=== PATIENT | male | born 1990 | race Caucasian/White ===

== ENCOUNTER 2019-11-19 16:50 | Emergency (ER) | payer OTHER ==
[2019-11-19 16:56] VITALS: RESP 18; TEMP 97.9
[2019-11-19] MEDS ORDERED: FLUORESCEIN STRIPS 1 MG STRIP BOTH EYES ONE (17:17)
--- NOTE | 2019-11-19 18:12 | ED ---
Eye Problem HPI - General Chief complaint: Eye Problems Stated complaint: lt eye pain, no injury Time Seen by Provider: 11/19/19 16:59 Source: patient Mode of arrival: ambulatory Limitations: no limitations - History of Present Illness Initial comments: 29-year-old male presenting for shooting left eye pain. Patient states he had I pain that began this morning. He denies contact lens use. Patient denies vision loss or blurred vision he states is somewhat watering. Patient states he does then I added home that has a. Patient denies any involvement of the right eye. Patient denies any upper respiratory symptoms. Patient states is a slight frontal headache. He states that this was not necessary associated with the beginning of the eye pain. Patient denies any tenderness palpation of the scalp. Patient denies any rashes or lesions of the face. Patient denies diplopia denies any nausea. Patient denies scratching his eye or weren't work ing with wood or metals. Remaining review of systems negative upon arrival patient appears well no signs of acute distress he denies any trauma to the eye - Related Data Previous Rx's Medication Instructions Recorded Diclofenac 0.1% Ophth Soln 1 drops LEFT EYE QID 5 Days #3 ml 11/19/19 [Voltaren 0.1% Ophth Soln] Erythromycin Ophth Oint [Romycin 1 applic LEFT EYE QID 3 Days #1 11/19/19 Ophth Oint] tube Allergies Allergy/AdvReac Type Severity Reaction Status Date / Time No Known Allergies Allergy Verified 11/19/19 16:56 Review of Systems ROS Statement: Those systems with pertinent positive or pertinent negative responses have been documented in the HPI. ROS Other: All systems not noted in ROS Statement are negative. Past Medical History Past Medical History: Coronary Artery Disease (CAD) History of Any Multi-Drug Resistant Organisms: None Reported Past Surgical History: No Surgical Hx Reported Smoking Status: Former smoker Past Alcohol Use History: Occasional Past Drug Use History: Unable to Obtain General Exam - General Exam Comments Initial Comments: General: The patient is awake and alert, in no distress, and does not appear acutely ill. Eye: +3 mm pupils are equal, round and reactive to light, extra-ocular movements are intact, some mild pain with upper gaze. No APD visual gay intact No nystagmus. No tenderness to patient the temporal region. IOP 20 OU. There is conjunctival injection No signs of icterus. He is a faint areas of forcing examination Weathers uptake around the mid cornea around the 5 o'clock position, very faint.No FB noted. Ears, nose, mouth and throat: There are moist mucous membranes and no oral lesions. Musculoskeletal: Normal ROM, no tenderness. Strength 5/5. Sensation intact. Pulses equal bilaterally 2+. Neurological: A&O x 3. CN II-XII intact, There are no obvious motor or sensory deficits. Coordination appears grossly intact. Speech is normal. Skin: Skin is warm and dry and no rashes or lesions are noted. Psychiatric: Cooperative, appropriate mood & affect, normal judgment. Limitations: no limitations Course Vital Signs 11/19/19 11/19/19 16:52 18:37 Temperature 97.9 F Pulse Rate 71 89 Respiratory 18 18 Rate Blood Pressure 138/87 132/79 O2 Sat by Pulse 99 99 Oximetry Medical Decision Making - Medical Decision Making 29-year-old male presenting today for chief complaint of left eye pain. Some pain with extra ocular movement there is no limbal sparing conjunctival injection of the left eye. Differential diagnosis includes an iritis. Patient denies any trauma to the eye. Patient denies any systemic illness. There is a area concerning for possible abrasion to be very superficial. Patient will be treated for visit erythromycin ophthalmology was contacted as there is concern for possible iritis they recommended an topical nonsteroidal. I spoke with , explaining exam and history. He is agreeable to discharge of the patient with follow-up on Thursday patient is agreeable to this care plan discharge recommended immediate return for vision loss worsening symptoms patient discharged appearing well after discussed the case by attending provider Dr. Ballard Disposition Clinical Impression: Conjunctival injection Disposition: HOME SELF-CARE Condition: Good Instructions (If sedation given, give patient instructions): Iritis (ED) Additional Instructions: Please use medication as discussed. Please follow-up with family doctor in the next 2 days. Please return to emergency room if the symptoms increase or worsen or for any other concerns. Prescriptions: Erythromycin Ophth Oint [Romycin Ophth Oint] 1 applic LEFT EYE QID 3 Days #1 tube Diclofenac 0.1% Ophth Soln [Voltaren 0.1% Ophth Soln] 1 drops LEFT EYE QID 5 Days #3 ml Is patient prescribed a controlled substance at d/c from ED?: No Referrals: Ko Eid DO [Primary Care Provider] - 1-2 days Blair Vasques MD [STAFF PHYSICIAN] - 1-2 days Time of Disposition: 18:11
[2019-11-19 18:38] VITALS: BP 132/79; PULSE 89
== END 2019-11-19 18:37 | disposition home or self-care (01) ==
LOC: EC 16:50
DX: H11.432 Conjunctival hyperemia, left eye (principal); Z87.891 Personal history of nicotine dependence
CPT/HCPCS: 99283

== ENCOUNTER 2020-02-12 11:25 | Emergency (ER) | payer OTHER ==
[2020-02-12 11:35] VITALS: BP 120/70; PULSE 108; RESP 18; TEMP 97.5
--- NOTE | 2020-02-12 12:56 | ED ---
Psych HPI - General Chief Complaint: Psychiatric Symptoms Stated Complaint: mental health Time Seen by Provider: 02/12/20 11:49 Source: patient, family, RN notes reviewed Mode of arrival: ambulatory Limitations: no limitations - History of Present Illness Initial Comments: This a 29-year-old male presents emergency from for psychiatric evaluation. Patient states he feels suppressant has some PTSD from prior bad relationships and from the [employer]. Patient denies being suicidal homicidal no physical complaints denies any drug or alcohol abuse. - Related Data Home Medications Medication Instructions Recorded Confirmed No Known Home Medications 02/12/20 02/12/20 Allergies Allergy/AdvReac Type Severity Reaction Status Date / Time No Known Allergies Allergy Verified 02/12/20 12:44 Review of Systems ROS Statement: Those systems with pertinent positive or pertinent negative responses have been documented in the HPI. ROS Other: All systems not noted in ROS Statement are negative. Past Medical History Past Medical History: Coronary Artery Disease (CAD) History of Any Multi-Drug Resistant Organisms: None Reported Past Surgical History: No Surgical Hx Reported Smoking Status: Former smoker Past Alcohol Use History: Occasional Past Drug Use History: Unable to Obtain General Exam Limitations: no limitations General appearance: alert, in no apparent distress Head exam: Present: atraumatic, normocephalic, normal inspection ENT exam: Present: normal exam, mucous membranes moist Neck exam: Present: normal inspection. Absent: tenderness, meningismus, lymphadenopathy Respiratory exam: Present: normal lung sounds bilaterally. Absent: respiratory distress, wheezes, rales, rhonchi, stridor Cardiovascular Exam: Present: regular rate, normal rhythm, normal heart sounds. Absent: systolic murmur, diastolic murmur, rubs, gallop, clicks GI/Abdominal exam: Present: soft, normal bowel sounds. Absent: distended, tenderness, guarding, rebound, rigid Neurological exam: Present: alert, oriented X3 Psychiatric exam: Present: normal affect, normal mood Course Vital Signs 02/12/20 11:31 Temperature 97.5 F L Pulse Rate 108 H Respiratory 18 Rate Blood Pressure 120/70 O2 Sat by Pulse 99 Oximetry Medical Decision Making - Medical Decision Making Patient reevaluated by EPS and discussed outpatient follow-up and return parameters patient in family room agrees with plan. Disposition Clinical Impression: Depression Disposition: HOME SELF-CARE Condition: Stable Instructions (If sedation given, give patient instructions): Depression (ED) Additional Instructions: Please return to the Emergency Department if symptoms worsen or any other concerns. Is patient prescribed a controlled substance at d/c from ED?: No Referrals: Ko Eid DO [Primary Care Provider] - 1-2 days Time of Disposition: 12:55
== END 2020-02-12 13:12 | disposition home or self-care (01) ==
LOC: EC 11:25
DX: F32.9 Major depressive disorder, single episode, unspecified (principal); Z87.891 Personal history of nicotine dependence
CPT/HCPCS: 99284